=== PATIENT | female | born 1935 | race Caucasian/White ===

== ENCOUNTER 2018-07-13 20:47 | Inpatient (IN) ==
[2018-07-14] MEDS: Sod Chloride 0.9% Inj 1,000 ML IV.CONT SCH (03:00)
[2018-07-14] MEDS ORDERED: niCARdipine Inj 25 MG in Sodium Chlor 0.9% Inj 240 ML IV.CONT PRN (03:20)
--- NOTE | 2018-07-14 05:14 | P.HPCC ---
History of Present Illness Service: Critical Care medicine Primary Care Physician: UNKNOWN Chief Complaint: Falling History of Present Illness: History obtained primarily from discussion with Dr. Trejo at [place]. Patient provides limited history. I attempted to contact family (Emeka Henry) but there was no answer. Nurse states she was told they would be coming to the hospital later today. 83-year-old female with past medical history of hypertension, hyperlipidemia, dementia, whose nez perce language is Ghanaian, was reportedly living independently until she had a fall in June and then moved in with her family. Her family indicated that for about a week and a half she would lean to the left when ambulating. She had seen her PMD for this a couple of days ago but presented to the ED in [place] when symptoms persisted. Workup there included CT brain that demonstrated 3 cm subacute subdural with 1.12 cm of [id number] midline shift with impingement on the right ventricle. She had normal platelet count and coags. She is not on antiplatelet or anticoagulant therapy. No reported seizure. She is hyperglycemic with glucose 381, sodium was 134. ED physician discussed with Neurosurgery and patient was transferred to [facility]. Recorded BP was 181/77 at [place] but per report this was obtained during IV placement and subsequent BPs were reportedly in 140s-150. However, upon arrival here her BP was 211/86 and she is being started on cardene drip. She denies headache, nausea, pain, sensory deficits. - Diagnosis (1) HTN (hypertension) (2) Intracranial subdural hematoma (3) Acute UTI (4) HLD (hyperlipidemia) (5) Hyponatremia Inpatient Certification: I certify that the inpatient services were ordered in accordance with Medicare regulations governing the order. This includes certification that hospital inpatient services are reasonable and necessary and in the case of services not specified as inpatient-only under 42 CFR 419.22(n), that they are appropriately provided as inpatient services in accordance to with the 2-midnight benchmark under 43 CFR 412.3(e) Review of Systems All other systems reviewed negative except as stated in HPI [facility] - History History Provided By: Patient, Family Member - Medical History Medical History: Medical History (Last Updated 07/14/18 @ 05:38 by Heidi Unger MD) Surgical history unknown (Acute) Dementia Hyperlipemia Hypertension Type 2 diabetes mellitus - Family History Family History: Family History (Last Updated 07/14/18 @ 05:38 by Heidi Unger MD) Other No significant family history - Tobacco History Second Hand Smoke Exposure: No Smoking Status: Never smoker - Alcohol History How Often Do You Have a Drink Containing Alcohol: Never - Substance Use History Substance History: No History of Abuse Medications and Allergies Active Medications: Active Medications Nicardipine HCl 25 mg/ Sodium (Chloride) 250 mls @ 50 mls/hr IV.CONT TITRATE PRN; Protocol PRN Reason: Per Protocol Last Admin: 07/14/18 03:34 Dose: 5 mg/hr, 50 mls/hr Labetalol HCl (Trandate Inj) 10 mg IV.PUSH Q4H PRN PRN Reason: SBP >160 Allergies Allergy/AdvReac Type Severity Reaction Status Date / Time No Known Allergies Allergy Verified 07/13/18 20:59 Home Medications Medication Instructions Recorded Confirmed Type atorvastatin 40 mg PO DAILY 07/13/18 07/14/18 History cyanocobalamin-cobamamide [B12] 1 tab SUBLINGUAL DAILY 07/13/18 07/14/18 History donepezil 10 mg PO DAILY 07/13/18 07/14/18 History folic acid 1 mg PO DAILY 07/13/18 07/14/18 History loratadine 10 mg PO DAILY 07/13/18 07/14/18 History losartan 100 mg PO DAILY 07/13/18 07/14/18 History metoprolol succinate 50 mg PO DAILY 07/13/18 07/14/18 History Results - Labs CBC & Chem 7: 07/15/18 04:18 07/15/18 04:18 Exam Vital signs: Vital Signs 07/14/18 03:00 07/14/18 04:00 07/14/18 05:00 Temperature 97.5 F L Pulse Rate 62 66 76 Respiratory Rate 20 19 19 Blood Pressure 211/86 H 163/70 H 131/73 Pulse Oximetry 100 96 98 Intake & Output 07/13/18 07/13/18 07/14/18 06:59 18:59 06:59 Weight 46.7 kg Other: Date of Last Bowel Movement 07/14/18 Weight On Admission 46.7 kg Narrative: GENERAL: Elderly female who communicates with combination of Ghanaian and Nepalese. SKIN: Warm and dry, well perfused. HEAD: Atraumatic. Normocephalic. EYES: Pupils equal and round, pinpoint and sluggishly reactive bilaterally. No scleral icterus. No injection or drainage. ENT: No nasal bleeding or discharge. Mucous membranes pink and moist. NECK: Trachea midline. No JVD. CARDIOVASCULAR: Regular rate and rhythm, sinus rhythm on the monitor. No murmurs rubs or gallops. RESPIRATORY: No accessory muscle use. Clear to auscultation. Breath sounds equal bilaterally. On room air GASTROINTESTINAL: Abdomen soft, non-tender, nondistended. Bowel sounds present. MUSCULOSKELETAL: Extremities without clubbing, cyanosis, or edema. No obvious deformities. NEUROLOGICAL: Awake and alert. Oriented to self, hospital. No obvious cranial nerve deficits, no facial droop. She reports intact sensation to soft touch and temperature. No pronator drift. She requires repeated prompting to follow commands, strength appears symmetrical without apparent focality. Gait testing deferred, patient reportedly falls to left upon prior gait testing. Caprini VTE Risk Assessment Caprini VTE Risk Assessment: Moderate/High Risk (score >= 2) VTE Pharmacological Exception Reason: Intracranial lesions Caprini Risk Assessment Model: Point Value = 1 Point Value = 2 Point Value = 3 Point Value = 5 Age 41-60 Minor surgery BMI > 25 kg/m2 Swollen legs Varicose veins or History of unexplained or recurrent spontaneous Oral contraceptives or hormone replacement Sepsis (< 1 month) Serious lung disease, including pneumonia (< 1 month) Abnormal pulmonary function Acute myocardial infarction Congestive heart failure (< 1 month) History of inflammatory bowel disease Medical patient at bed rest Age 61-74 Arthroscopic surgery Major open surgery (> 45 min) Laparoscopic surgery (> 45 min) Malignancy Confined to bed (> 72 hours) Immobilizing plaster cast Central venous access Age >= 75 History of VTE Family history of VTE Factor V Leiden Prothrombin 32199C Lupus anticoagulant Anticardiolipin antibodies Elevated serum homocysteine Heparin-induced thrombocytopenia Other congenital or acquired thrombophilia Stroke (< 1 month) Elective arthroplasty Hip, pelvis, or leg fracture Acute spinal cord injury (< 1 month) Prophylaxis Regimen: Total Risk Factor Score Risk Level Prophylaxis Regimen 0-1 Low Early ambulation 2 Moderate Order ONE of the following: *Sequential Compression Device (SCD) *Heparin 5000 units SQ BID 3-4 Higher Order ONE of the following medications: *Heparin 5000 units SQ TID *Enoxaparin/Lovenox 40 mg SQ daily (WT < 150 kg, CrCl > 30 mL/min) *Enoxaparin/Lovenox 30 mg SQ daily (WT < 150 kg, CrCl > 10-29 mL/min) *Enoxaparin/Lovenox 30 mg SQ BID (WT < 150 kg, CrCl > 30 mL/min) AND/OR *Sequential Compression Device (SCD) 5 or more Highest Order ONE of the following medications: *Heparin 5000 units SQ TID (Preferred with Epidurals) *Enoxaparin/Lovenox 40 mg SQ daily (WT < 150 kg, CrCl > 30 mL/min) *Enoxaparin/Lovenox 30 mg SQ daily (WT < 150 kg, CrCl > 10-29 mL/min) *Enoxaparin/Lovenox 30 mg SQ BID (WT < 150 kg, CrCl > 30 mL/min) AND *Sequential Compression Device (SCD) Assessment and Plan - Problem List (1) HTN (hypertension) Code(s): I10 - Essential (primary) hypertension Status: Acute (2) Intracranial subdural hematoma Code(s): S06.5X9A - Traumatic subdural hemorrhage with loss of consciousness of unspecified duration, initial encounter Status: Inactive (3) Acute UTI Code(s): N39.0 - Urinary tract infection, site not specified Status: Inactive (4) HLD (hyperlipidemia) Code(s): E78.5 - Hyperlipidemia, unspecified Status: Chronic (5) Hyponatremia Code(s): E87.1 - Hypo-osmolality and hyponatremia Status: Acute - Assessment and Plan Plan: NEURO: Subacute subdural hematoma with midline shift Dementia Admit to [facility] with every hour neuro check. Neurosurgery consult for hematoma evacuation. Keppra 500 milligrams IV every 12 hours for seizure prophylaxis Cardene drip as per below. Continue Aricept RESP: She is currently protecting her airway. Monitor in [facility] for airway protection and will intubate if needed. CV: Hypertension Hyperlipidemia Monitor hemodynamics. Nicardipine drip as needed to maintain systolic blood pressure less than 160. Labetalol as needed. Hold statin for now. Hold losartan/metoprolol succinate for now. GI: N.p.o. for now. When it is appropriate to advance diet will need swallow evaluation. FEN/RENAL: Mild hyponatremia, monitor BMP. NS 42ml/hr. ID: UA at [place] showed bacteriuria. Urine culture was sent and we will follow this up. She did receive 1 dose of Keflex. White count is normal with no fever or urinary symptoms. HEME: She is not on any antiplatelet or anticoagulant therapy. Platelet count and coags were normal at outside hospital. ENDO: Acute hyperglycemia reportedly does not carry the diagnosis of diabetes. Will monitor bedside glucose every 4 hours and administer low-dose insulin sliding scale as needed. Check hemoglobin A1c. PROPH: SCDs for DVT prophylaxis. Pharmacology DVT prophylaxis is currently contraindicated due to subacute subdural hematoma. Protonix IV for stress ulcer prophylaxis. ACCESS: Peripheral IV providing adequate access at this time. Patient is critically ill with subacute subdural with mass-effect. She is at high risk for further deterioration which could include loss of airway protection. She has malignant hypertension and in need of urgent management. CCT 40 minutes exclusive of separately billable procedures. H&P: Quality - VTE Deep Vein Thrombosis/Pulmonary Embolism Present on Admission: No (2) Intracranial subdural hematoma Qualifiers: Encounter type: initial encounter Loss of consciousness presence/duration: without LOC Qualified Code(s): S06.5X0A - Traumatic subdural hemorrhage without loss of consciousness, initial encounter
[2018-07-14] MEDS ORDERED: Bisacodyl 10 MG Supp RECTAL PRN (05:50)
[2018-07-14] MEDS ORDERED: Acetaminophen 325 MG Tablet PO PRN (05:50)
[2018-07-14] MEDS ORDERED: Dextrose 50% in Water 50 ML Vial IV.PUSH PRN (05:55)
[2018-07-14] MEDS: Insulin NovoLOG Aspart Correctional Sugar Inj SQ SCH ×4 (06:10→18:00)
[2018-07-14] MEDS ORDERED: Gelatin Size 100 Topical Foam ONE (07:36)
[2018-07-14] MEDS ORDERED: Thrombin Topical Soln 5,000 UNIT Vial TOPICAL ONE (07:36)
[2018-07-14] MEDS ORDERED: Lidocaine 1%/Epinephrine 1:100,000 Inj 30 ML Vial ONE (07:36)
[2018-07-14] MEDS ORDERED: Bupivacaine/Epinephrine Inj 0.25% 50 ML Vial ONE (07:36)
--- NOTE | 2018-07-14 07:38 | P.CONNS ---
History of Present Illness Service: Neurosurgery Consult date: 07/14/18 Reason for Consult: Subdural hematoma Primary Care Provider: UNKNOWN Chief Complaint: Falling History of Present Illness: 83 yo with PMH of HTN, HL, dementia transferred from OSH for evaluation of subdural hematoma. History obtained from brother and sister in law. reports fall roughly one month ago. has noticed a steady decline over the past 1-2 weeks regarding gait and left sided weakness. Patient does report headaches. Review of Systems All other systems reviewed negative except as stated in HPI [facility] - History History Provided By: Patient, Family Member - Medical History Medical History: Medical History (Last Updated 07/14/18 @ 05:38 by Heidi Unger MD) Surgical history unknown (Acute) Dementia Hyperlipemia Hypertension Type 2 diabetes mellitus - Family History Family History: Family History (Last Updated 07/14/18 @ 05:38 by Heidi Unger MD) Other No significant family history - Tobacco History Second Hand Smoke Exposure: No Smoking Status: Never smoker - Alcohol History How Often Do You Have a Drink Containing Alcohol: Never - Substance Use History Substance History: No History of Abuse Medications and Allergies Active Medications: Active Medications Acetaminophen (Tylenol) 650 mg PO Q6H PRN PRN Reason: PAIN 1-10 AND/OR FEVER >101F Hydrocodone Bitart/Acetaminophen (Colony 5/325) 1 tab PO Q4H PRN PRN Reason: headache Last Admin: 07/14/18 06:13 Dose: 1 tab Al Hydroxide/Mg Hydroxide (Milk Of Magndavid Liq) 30 ml PO Q12H PRN PRN Reason: Mild Constipation Bisacodyl (Dulcolax Supp) 10 mg RECTAL DAILY PRN PRN Reason: SEVERE CONSITIPATION Dextrose (D50w Vial) 50 ml IV.PUSH UNSCH PRN PRN Reason: PER HYPOGLYCEMIA PROTOCOL Donepezil HCl (Aricept) 10 mg PO DAILY [facility] Glucagon (Glucagon Inj) 1 mg OTHER PRN PRN PRN Reason: for Hypoglycemia Protocol Nicardipine HCl 25 mg/ Sodium (Chloride) 250 mls @ 50 mls/hr IV.CONT TITRATE PRN; Protocol PRN Reason: Per Protocol Last Titration: 07/14/18 05:24 Dose: 0 mg/hr, 0 mls/hr Levetiracetam 500 mg/ Sodium (Chloride) 105 mls @ 400 mls/hr IV.SIG Q12H REPLACED BY [facility] Last Infusion: 07/14/18 06:14 Dose: Infused Sodium Chloride (Ns Inj) 1,000 mls @ 42 mls/hr IV.CONT .[id number] REPLACED BY [facility] Last Admin: 07/14/18 03:00 Dose: 42 mls/hr Insulin Aspart (Novolog Insulin Correctional Sugar Inj) 0 unit SQ Q4H REPLACED BY [facility]; Protocol Last Admin: 07/14/18 06:10 Dose: 1 unit Labetalol HCl (Trandate Inj) 10 mg IV.PUSH Q4H PRN PRN Reason: SBP >160 Lactulose (Lactulose Liq) 30 ml PO DAILY PRN PRN Reason: SEVERE CONSITIPATION Ondansetron HCl (Zofran Inj) 4 mg IV.PUSH Q6H PRN PRN Reason: NAUSEA OR VOMITING Pantoprazole Sodium (Protonix Inj) 40 mg IV.PUSH DAILY REPLACED BY [facility] Senna/Docusate Sodium (Michelle-Colace) 1 tab PO BID REPLACED BY [facility] Sennosides (Senokot) 17.2 mg PO Q12H PRN PRN Reason: Moderate Constipation Sodium Chloride (Ns Flush) 2 ml IV.FLUSH BID [facility] Sodium Chloride (Ns Flush) 2 ml IV.FLUSH PRN PRN PRN Reason: FLUSH AFTER USING IV ACCESS Allergies Allergy/AdvReac Type Severity Reaction Status Date / Time No Known Allergies Allergy Verified 07/13/18 20:59 Home Medications Medication Instructions Recorded Confirmed Type atorvastatin 40 mg PO DAILY 07/13/18 07/14/18 History cyanocobalamin-cobamamide [B12] 1 tab SUBLINGUAL DAILY 07/13/18 07/14/18 History donepezil 10 mg PO DAILY 07/13/18 07/14/18 History folic acid 1 mg PO DAILY 07/13/18 07/14/18 History loratadine 10 mg PO DAILY 07/13/18 07/14/18 History losartan 100 mg PO DAILY 07/13/18 07/14/18 History metoprolol succinate 50 mg PO DAILY 07/13/18 07/14/18 History Exam Vital signs: Vital Signs 07/14/18 03:00 07/14/18 04:00 07/14/18 05:00 Temperature 97.5 F L Pulse Rate 62 66 76 Respiratory Rate 20 19 19 Blood Pressure 211/86 H 163/70 H 131/73 Pulse Oximetry 100 96 98 07/14/18 06:00 07/14/18 07:14 Temperature Pulse Rate 66 Respiratory Rate 19 11 L Blood Pressure 163/70 H Pulse Oximetry 96 Intake & Output 07/13/18 07/14/18 07/14/18 18:59 06:59 18:59 Intake Total 105 / 105 Output Total 550 / 550 Balance -445 / -445 Weight 46.7 kg Intake: IV 105 / 105 Keppra Inj 500 MG In NS Inj 100 105 / 105 ML @ 400 mls/hr IV.SIG Q12H [facility] Rx#:[id number] Output: Urine 550 / 550 Other: # Voids 1 Date of Last Bowel Movement 07/14/18 # Bowel Movements 0 Weight On Admission 46.7 kg Narrative: E4 bright service dispatcher intact Ao x self, hospital, not to year Follows commands x4 does not cooperate for full motor testing but symmetric and resists examiner with good strength (roughly 4 throughout) Left drift 0/4 reflexes throughout sensation intact in all extremities Results - Laboratory Findings Abnormal lab findings: Abnormal Labs 07/14/18 06:07 POC Glucose 192 H Assessment and Plan - Plan Imaging: Large right sided panhemispheric subacute on chronic subdural hematoma measuring roughly 3 cm with 1 cm of midline shift A/P: 83 with symptomatic right sided subdural hematoma. Discussed the risks, indications, and alternatives to surgical intervention, family would like to proceed with anna holes for evacuation of subdural hematoma -OR today for evacuation -NPO
[2018-07-14] MEDS ORDERED: ceFAZolin 2 GM Premix Inj 2 GM/50 ML PIGGYBACK IV.SIG ONE (08:35)
[2018-07-14] MEDS ORDERED: Metoprolol Inj 5 MG/5 ML Vial IV.PUSH ONE (08:45)
[2018-07-14] MEDS ORDERED: Phenylephrine/NS 1000 MCG/10ML Syringe IV.PUSH ONE (08:45)
[2018-07-14] MEDS ORDERED: Lidocaine PF 1% Inj 5 ML Syringe INFILTRATN ONE (08:45)
[2018-07-14] MEDS: Pantoprazole Inj 40 MG Vial IV.PUSH SCH (09:31)
[2018-07-14] MEDS: Senna/Docusate Sodium 8.6/50 MG Tablet PO SCH ×2 (09:31→21:22)
[2018-07-14] MEDS ORDERED: Chlorhexidine Gluconate 0.12% Liq 15 ML UDC ONE (09:32)
--- NOTE | 2018-07-14 10:19 | P.BOP ---
- Preoperative Diagnosis (1) Subdural hematoma, chronic - Postoperative Diagnosis (1) Subdural hematoma, chronic Date of procedure: 07/14/18 Procedure: Right anna holes for evacuation of subdural hematoma Anesthesia: GETA Surgeon: Harlan Crump MD Estimated blood loss (mL): 50 IV fluids (mL): 700 Urine output (mL): 0 (not recorded) Pathology: none sent Condition: stable Disposition: ICU
--- NOTE | 2018-07-14 10:20 | P.EN ---
Post operative instructions -EVERARDO to thumb print and at shoulder -Ok to be OOB for bathroom and work with PT -when in bed, please keep HOB <10 degrees -Nydia for 2 weeks
--- NOTE | 2018-07-14 10:25 | P.OP ---
- Preoperative Diagnosis (1) Subdural hematoma, chronic - Postoperative Diagnosis (1) Subdural hematoma, chronic Date of procedure: 07/14/18 Procedure: Right anna holes for evacuation of subdural hematoma Implants: none Anesthesia: GETA Surgeon: Harlan Crump MD Estimated blood loss (mL): 50 IV fluids (mL): 700 Urine output (mL): 0 (not recorded) Operation and Findings: Indication for procedure: This is an 83 yo who presented to an [facility] ED on 07/13 with complaints of gait difficulties. Per family, with fall 1 month ago with progressive decline since then. A head CT was obtained which demonstrated a large panhemispheric right subdural hematoma. The risks, indications, and alternatives were discussed with the patients poa, and the family elected to undergo anna holes for evacuation. Details of procedure: The patient was brought to the operating room and moved to the operating table. A universal time out was performed confirming the correct patient and correct procedure. The patient was anesthetized and intubated by our anesthesia collegues without complication. The patient was subsequently prepped and drapped in sterile fashion. A pre-incisional timeout was again performed confirming introduction of pre-incisional antibiotics. Two scalp incisions (right frontal and right parietal) were anesthetized with local anesthetic and incised with a 10 blade. Two anna holes were made and the dura was coagulated open. There was a large chronic, under pressure, subdural fluid collection found. This was irrigated till clear. Both anna holes were covered with anna hole covers and a 7 F EVERARDO drain was tunneled in the subgaleal space to lay on top. The wounds were copiously irrigated and hemostasis achieved. The posterior wound was closed with 2.0 vicryl followed by al for the skin. The head was raised and the frontal anna hole was irrigated in efforts to remove all pneumocephalus. The frontal incision was then closed as described above. All counts were correct at the end of the procedure and the patient was extubated and noted to be following commands. No intraoperative complications noted. Dispo: PACU in stable condition
[2018-07-14] MEDS ORDERED: fentaNYL Citrate Inj 100 MCG/2 ML Ampul ONE (10:33)
[2018-07-14 10:58] LABS: Hemoglobin A1c 8.2 % (4.3-6.0)
--- NOTE | 2018-07-14 18:29 | P.EN ---
Neurosurgery post op note E4 bright AO x self, hospital FC x4 5/5 strength in the upper and lower extremities without drift A/P: 83 yo POD O right anna holes for subdural hematoma -neuro checks -continue EVERARDO -pain control -HOB <10 when in bed, ok to be OOB for bathroom
[2018-07-15] MEDS: Insulin NovoLOG Aspart Correctional Sugar Inj SQ SCH ×7 (02:53→21:24)
[2018-07-15 04:52] LABS: Baso % (Auto) 0.3 % (0.0-2.0); Eos % (Auto) 0.3 % (0.0-4.0); Hemoglobin 10.9 gm/dL (11.6-15.3); Lymph # (Auto) 0.8 th/mm3 (1.0-4.8); Lymph % (Auto) 8.3 % (9.0-44.0); Mean Corpuscular HGB Conc 35.2 % (32.0-36.0); Mean Corpuscular Hemoglobin 32.7 pg (27.0-34.0); Mean Corpuscular Volume 92.9 fL (80.0-100.0); Mean Platelet Volume 9.1 fL (7.0-11.0); Mono # (Auto) 0.7 th/mm3 (0.0-0.9); Mono % (Auto) 6.9 % (0.0-8.0); Neut # (Auto) 8.6 th/mm3 (1.8-7.7); Neut % (Auto) 84.2 % (16.0-70.0); Platelet Count 188 th/mm3 (150-450); Red Blood Count 3.33 mil/mm3 (4.00-5.30); Red Cell Distribution Width 13.5 % (11.6-17.2); White Blood Count 10.2 th/mm3 (4.0-11.0)
[2018-07-15 05:08] LABS: Calcium 7.3 mg/dL (8.5-10.1); Carbon Dioxide 26.4 meq/L (21.0-32.0); Magnesium 1.9 mg/dL (1.5-2.5); Phosphorus 2.7 mg/dL (2.5-4.9); Potassium 3.5 meq/L (3.5-5.1)
[2018-07-15 05:31] LABS: Total Protein 6.3 g/dL (6.4-8.2)
--- NOTE | 2018-07-15 05:36 | CT ---
EXAM DATE: 07/15/2018 5:00 AM EDT AGE/SEX: 83 years / Female INDICATIONS: F/U subdural hematoma. CLINICAL DATA: This is the patient's subsequent encounter. Patient reports that signs and symptoms h ave been present for 2 days and indicates a pain score of Nonresponsive. MEDICAL/SURGICAL HISTORY: Hypertension. Dementia. Diabetes. None. RADIATION DOSE: 35.03 CTDI (mGy) COMPARISON: [facility], CT HEAD W/O CONTRAST, 07/13/2018. . TECHNIQUE: CT of the head without contrast. Using automated exposure control and adjustment of the mA and/or kV according to patient size, radiation dose was kept as low as reasonably achievable to ob tain optimal diagnostic quality images. DICOM format image data is available electronically for revi ew and comparison. FINDINGS: Cerebrum: Compare July 13. Previous large right subdural hematoma has decreased in size now trinity uring around 11 mm in thickness with some pneumocephalus present. Midline shift has decreased from 11 mm to 8 mm from right to left. No new hemorrhage. A drain is present in the scalp. [place] hole is note d. Posterior Fossa: The cerebellum and brainstem are intact. The 4th ventricle is midline. The cerebe llopontine angle is unremarkable. Extracranial: The visualized portion of the orbits is intact. Skull: The calvaria is intact. No evidence of skull fracture. CONCLUSION: 1. Decrease in size of right subdural hematoma with less mass effect or midline shift as above. No n ew hemorrhage. Right-sided drain is within the scalp soft tissues. Romina hole is present with pneumoce phalus from recent surgery. . Electronically signed by: Steve Morocho MD 07/15/2018 5:35 AM EDT
[2018-07-15] MEDS: Sod Chloride 0.9% Inj 1,000 ML IV.CONT SCH (06:03)
--- NOTE | 2018-07-15 08:37 | P.PNNS ---
Subjective Interval history: patient reports improved headache Physical Exam Vital signs: Vital Signs 07/14/18 10:30 07/14/18 10:45 07/14/18 11:15 Temperature 95.9 F L 97.5 F L Pulse Rate 87 86 85 Respiratory Rate 20 18 16 Blood Pressure 129/60 136/62 139/67 Pulse Oximetry 100 100 100 07/14/18 12:00 07/14/18 13:00 07/14/18 14:00 Temperature 97.3 F L Pulse Rate 64 60 62 Respiratory Rate 17 13 20 Blood Pressure 127/60 143/65 H 154/69 H Pulse Oximetry 100 100 100 07/14/18 15:00 07/14/18 16:00 07/14/18 17:00 Temperature 97.6 F Pulse Rate 68 70 76 Respiratory Rate 16 22 19 Blood Pressure 164/67 H 194/89 H Pulse Oximetry 99 98 98 07/14/18 18:00 07/14/18 19:00 07/14/18 20:00 Temperature 97.7 F Pulse Rate 72 77 80 Respiratory Rate 20 14 Blood Pressure 177/75 H Pulse Oximetry 98 98 07/14/18 21:00 07/14/18 22:00 07/14/18 23:00 Temperature Pulse Rate 76 76 77 Respiratory Rate Blood Pressure Pulse Oximetry 07/15/18 00:00 07/15/18 01:00 07/15/18 02:00 Temperature 97.7 F Pulse Rate 77 78 83 Respiratory Rate 21 Blood Pressure 152/68 H Pulse Oximetry 98 07/15/18 02:53 07/15/18 03:00 07/15/18 04:00 Temperature 97.7 F Pulse Rate 81 79 Respiratory Rate 21 25 H Blood Pressure 155/72 H Pulse Oximetry 94 L 07/15/18 05:00 07/15/18 05:41 07/15/18 06:00 Temperature Pulse Rate 73 73 Respiratory Rate 25 H Blood Pressure Pulse Oximetry Intake & Output 07/14/18 07/15/18 07/15/18 18:59 06:59 18:59 Intake Total 750 / 750 2910 / 2910 160 / 160 Output Total 125 / 125 675 / 675 560 / 560 Balance 625 / 625 2235 / 2235 -400 / -400 Weight 48 kg Intake: IV 50 / 50 2210 / 2210 NS Inj 1,000 ML @ 42 mls/hr IV. 1999 CONT .[id number] [facility] Rx#:[id number] Ancef 2 GM Premix Inj 2 gm In 50 / 50 50 ml @ 0 mls/hr IV.SIG .STK- [facility] Rx#:[id number] Keppra Inj 500 MG In NS Inj 100 210 / 210 ML @ 400 mls/hr IV.SIG Q12H [facility] Rx#:[id number] Oral 160 / 160 Anesthesia Amount 700 / 700 700 / 700 Output: Urine 550 / 550 500 / 500 Stool 0 / 0 Estimated Blood Loss 50 / 50 50 / 50 Wound Drainage 75 / 75 75 / 75 60 / 60 # 1 Right Head EVERARDO Drain 75 / 75 75 / 75 60 / 60 Other: # Voids 1 1 # Incontinent Voids 3 3 Date of Last Bowel Movement 07/14/18 07/14/18 07/14/18 # Bowel Movements 0 0 Narrative: E4 AOx 2 FC x 4 4/5 strength throughout, symmetric without drift Assessment and Plan - Plan A/P: 83 POD 1 from Rt anna holes for evacuation of subdural hematoma -CT head reviewed: reduction in subdural size and midline shift -EVERARDO with high output, continue for 1 more day, perform frequent drain tube stripping -keppra for 2 weeks -Ok to be OOB with bathroom privileges and to work with PT. When in bed, please keep HOB <10 degrees in order to promote further evacuation of SDH -regular diet -likely dc drain tomorrow and transfer to floor
[2018-07-15] MEDS: Senna/Docusate Sodium 8.6/50 MG Tablet PO SCH ×2 (09:13→21:24)
[2018-07-15] MEDS: Pantoprazole Inj 40 MG Vial IV.PUSH SCH (09:13)
[2018-07-15] MEDS: Labetalol HCl Inj 100 MG/20 ML Vial IV.PUSH PRN ×2 (09:15→17:42)
--- NOTE | 2018-07-15 11:26 | P.PN ---
Subjective Interval history: Nursing denies any deterioration since last night. Patient herself has no new juliana complaints. Says she wants to try to exercise as much as possible, does not like to lie in bed. Physical Exam Vital signs: Vital Signs 07/14/18 12:00 07/14/18 13:00 07/14/18 14:00 Temperature 97.3 F L Pulse Rate 64 60 62 Respiratory Rate 17 13 20 Blood Pressure 127/60 143/65 H 154/69 H Pulse Oximetry 100 100 100 07/14/18 15:00 07/14/18 16:00 07/14/18 17:00 Temperature 97.6 F Pulse Rate 68 70 76 Respiratory Rate 16 22 19 Blood Pressure 164/67 H 194/89 H Pulse Oximetry 99 98 98 07/14/18 18:00 07/14/18 19:00 07/14/18 20:00 Temperature 97.7 F Pulse Rate 72 77 80 Respiratory Rate 20 14 Blood Pressure 177/75 H Pulse Oximetry 98 98 07/14/18 21:00 07/14/18 22:00 07/14/18 23:00 Temperature Pulse Rate 76 76 77 Respiratory Rate Blood Pressure Pulse Oximetry 07/15/18 00:00 07/15/18 01:00 07/15/18 02:00 Temperature 97.7 F Pulse Rate 77 78 83 Respiratory Rate 21 Blood Pressure 152/68 H Pulse Oximetry 98 07/15/18 02:53 07/15/18 03:00 07/15/18 04:00 Temperature 97.7 F Pulse Rate 81 79 Respiratory Rate 21 25 H Blood Pressure 155/72 H Pulse Oximetry 94 L 07/15/18 05:00 07/15/18 05:41 07/15/18 06:00 Temperature Pulse Rate 73 73 Respiratory Rate 25 H Blood Pressure Pulse Oximetry 07/15/18 08:00 Temperature 97.9 F Pulse Rate 72 Respiratory Rate 19 Blood Pressure 169/70 H Pulse Oximetry 95 Intake & Output 07/14/18 07/15/18 07/15/18 18:59 06:59 18:59 Intake Total 750 / 750 2910 / 2910 160 / 160 Output Total 125 / 125 675 / 675 560 / 560 Balance 625 / 625 2235 / 2235 -400 / -400 Weight 48 kg Intake: IV 50 / 50 2210 / 2210 NS Inj 1,000 ML @ 42 mls/hr IV. 1999 CONT .[id number] [facility] Rx#:[id number] Ancef 2 GM Premix Inj 2 gm In 50 / 50 50 ml @ 0 mls/hr IV.SIG .STK- [facility] Rx#:[id number] Keppra Inj 500 MG In NS Inj 100 210 / 210 ML @ 400 mls/hr IV.SIG Q12H [facility] Rx#:[id number] Oral 160 / 160 Anesthesia Amount 700 / 700 700 / 700 Output: Urine 550 / 550 500 / 500 Stool 0 / 0 Estimated Blood Loss 50 / 50 50 / 50 Wound Drainage 75 / 75 75 / 75 60 / 60 # 1 Right Head EVERARDO Drain 75 / 75 75 / 75 60 / 60 Other: # Voids 1 1 # Incontinent Voids 3 3 Date of Last Bowel Movement 07/14/18 07/14/18 07/14/18 # Bowel Movements 0 0 Narrative: 5/5 for prescription strength bilaterally Alert and oriented 3 No juliana facial droop EVERARDO drain in place over right scalp Results - Labs CBC & Chem 7: 07/15/18 04:18 07/15/18 04:18 Laboratory Results - last 24 hr 07/14/18 07/14/18 07/14/18 08:12 15:18 17:28 WBC RBC Hgb Hct MCV MCH MCHC RDW Plt Count MPV Neut % (Auto) Lymph % (Auto) [place] % (Auto) Eos % (Auto) Baso % (Auto) Neut # (Auto) Lymph # (Auto) [place] # (Auto) Eos # (Auto) Baso # (Auto) WBC Differential Differential Comment Sodium Potassium Chloride Carbon Dioxide Anion Gap BUN Creatinine Estimated GFR POC Glucose 155 H 218 H Random Glucose Hemoglobin A1c 8.2 H Calcium Prot Corrected Calcium Phosphorus Magnesium Total Protein 07/15/18 07/15/18 04:18 04:18 WBC 10.2 RBC 3.33 L Hgb 10.9 L Hct 31.0 L MCV 92.9 MCH 32.7 MCHC 35.2 RDW 13.5 Plt Count 188 MPV 9.1 Neut % (Auto) 84.2 H Lymph % (Auto) 8.3 L [place] % (Auto) 6.9 Eos % (Auto) 0.3 Baso % (Auto) 0.3 Neut # (Auto) 8.6 H Lymph # (Auto) 0.8 L [place] # (Auto) 0.7 Eos # (Auto) 0.0 Baso # (Auto) 0.0 WBC Differential . Differential Comment Auto diff final Sodium 143 Potassium 3.5 Chloride 107 D Carbon Dioxide 26.4 Anion Gap 10 BUN 13 Creatinine 0.66 Estimated GFR 86 L POC Glucose Random Glucose 252 H D Hemoglobin A1c Calcium 7.3 L* D Prot Corrected Calcium 7.7 L Phosphorus 2.7 Magnesium 1.9 Total Protein 6.3 L D - Imaging Impressions Head CT 07/15/18 04:00 CONCLUSION: 1. Decrease in size of right subdural hematoma with less mass effect or midline shift as above. No new hemorrhage. Right-sided drain is within the scalp soft tissues. Romina hole is present with pneumocephalus from recent surgery. . Assessment and Plan - Plan 83-year-old female was admitted with subacute subdural hematoma with midline shift. Status post evacuation with EVERARDO drain placement. Doing well clinically. EVERARDO drain was emptied today by neurosurgeon. Subacute subdural hematoma with midline shift Dementia Keppra Continue Aricept Hypertension Hyperlipidemia resume home BP meds for now Mild hyponatremia -Normalized/resolved, stopping IV fluids bacteriuria -Urine culture was negative for any pathologic infection Diabetes mellitus New diagnosis, A1c is 8.2, blood sugars seem to be well over 150s consistently , continue LDSS, discharge w/ low dose metformin SCDs for DVT prophylaxis. Pharmacology DVT prophylaxis is currently contraindicated due to subacute subdural hematoma. Protonix IV for stress ulcer prophylaxis.
[2018-07-15] MEDS ORDERED: CYANOCOBALAMIN COBAMAMIDE SL SCH (11:45)
[2018-07-15] MEDS: Folic Acid 1 MG Tablet PO SCH (14:57)
[2018-07-16] MEDS: Labetalol HCl Inj 100 MG/20 ML Vial IV.PUSH PRN ×3 (00:11→12:12)
[2018-07-16] MEDS: Insulin NovoLOG Aspart Correctional Sugar Inj SQ SCH ×6 (02:27→21:18)
--- NOTE | 2018-07-16 08:52 | P.PNNS ---
Subjective Interval history: Improved overnight. Drain output lessened to 30cc last 12 hours. Requesting to go home. Physical Exam Vital signs: Vital Signs 07/15/18 12:00 07/15/18 16:00 07/15/18 20:00 Temperature 98.1 F 98.4 F 98.7 F Pulse Rate 70 74 74 Respiratory Rate 18 16 18 Blood Pressure 169/81 H 144/65 H 123/81 Pulse Oximetry 96 96 97 07/16/18 00:00 07/16/18 04:00 Temperature 98.3 F 98.5 F Pulse Rate 78 83 Respiratory Rate 15 22 Blood Pressure 170/72 H 171/73 H Pulse Oximetry 97 100 Intake & Output 07/15/18 07/16/18 07/16/18 18:59 06:59 18:59 Intake Total 715 / 715 355 / 355 Output Total 605 / 605 30 / 30 Balance 110 / 110 325 / 325 Weight 46.1 kg Intake: IV 355 / 355 105 / 105 NS Inj 1,000 ML @ 42 mls/hr IV. 250 / 250 CONT .[id number] [facility] Rx#:[id number] Keppra Inj 500 MG In NS Inj 100 105 / 105 105 / 105 ML @ 400 mls/hr IV.SIG Q12H [facility] Rx#:[id number] Oral 360 / 360 250 / 250 Output: Urine 500 / 500 Stool 0 / 0 Wound Drainage 105 / 105 30 / 30 # 1 Right Head EVERARDO Drain 105 / 105 30 / 30 Other: # Voids 2 3 Date of Last Bowel Movement 07/14/18 07/16/18 # Bowel Movements 1 Assessment and Plan - Plan A/P: 83 POD 2 from Rt anna holes for evacuation of subdural hematoma (07/14) -CT head reviewed: reduction in subdural size and midline shift -EVERARDO with reduced output overnight (30cc)-- removed this morning -keppra for 2 weeks -Ok to be OOB and to work with PT. No HOB or activity restriction at this point. -regular diet -Transfer to floor, PT/OT, activity as tolerated
[2018-07-16] MEDS: Senna/Docusate Sodium 8.6/50 MG Tablet PO SCH ×2 (09:19→21:18)
[2018-07-16] MEDS: Folic Acid 1 MG Tablet PO SCH (09:19)
[2018-07-16] MEDS: Pantoprazole Inj 40 MG Vial IV.PUSH SCH (09:20)
--- NOTE | 2018-07-16 11:30 | P.DCO ---
- Physical Therapy Order: Evaluate and treat - Occupational Therapy Order: Evaluate and treat - Home Health Nursing Order: Medical education, Signs/symptoms of disease process - Certification I have seen patient Tricia Henry on 07/16/18. My clinical findings support the need for the requested home health care services because: Limited ability to care for self I certify that my clinical findings support that this patient is homebound because: Unsafe to leave home unassisted
[2018-07-16] MEDS ORDERED: Labetalol HCl Inj 100 MG/20 ML Vial IV.PUSH ONE (11:31)
[2018-07-16] MEDS ORDERED: Lisinopril 5 MG Tablet PO SCH (11:45)
--- NOTE | 2018-07-16 14:24 | P.PN ---
Subjective Interval history: Nursing denies any deterioration since last night. Patient himself was go home Physical Exam Vital signs: Vital Signs 07/15/18 16:00 07/15/18 20:00 07/16/18 00:00 Temperature 98.4 F 98.7 F 98.3 F Pulse Rate 74 74 78 Respiratory Rate 16 18 15 Blood Pressure 144/65 H 123/81 170/72 H Pulse Oximetry 96 97 97 07/16/18 04:00 Temperature 98.5 F Pulse Rate 83 Respiratory Rate 22 Blood Pressure 171/73 H Pulse Oximetry 100 Intake & Output 07/15/18 07/16/18 07/16/18 18:59 06:59 18:59 Intake Total 715 / 715 355 / 355 Output Total 605 / 605 30 / 30 Balance 110 / 110 325 / 325 Weight 46.1 kg Intake: IV 355 / 355 105 / 105 NS Inj 1,000 ML @ 42 mls/hr IV. 250 / 250 CONT .[id number] [facility] Rx#:[id number] Keppra Inj 500 MG In NS Inj 100 105 / 105 105 / 105 ML @ 400 mls/hr IV.SIG Q12H [facility] Rx#:[id number] Oral 360 / 360 250 / 250 Output: Urine 500 / 500 Stool 0 / 0 Wound Drainage 105 / 105 30 / 30 # 1 Right Head EVERARDO Drain 105 / 105 30 / 30 Other: # Voids 2 3 Date of Last Bowel Movement 07/14/18 07/16/18 # Bowel Movements 1 Narrative: Heart sounds regular rate rhythm, no murmurs Clear lungs bilaterally, unlabored breathing Alert and oriented x3 Results - Labs CBC & Chem 7: 07/15/18 04:18 07/15/18 04:18 Laboratory Results - last 24 hr 07/15/18 07/15/18 07/16/18 16:14 21:12 06:30 POC Glucose 258 H 164 H 160 H 07/16/18 14:15 POC Glucose 342 H Assessment and Plan - Assessment (1) Subdural hematoma, chronic Code(s): I62.03 - Nontraumatic chronic subdural hemorrhage Status: Acute - Plan 83-year-old female was admitted with subacute subdural hematoma with midline shift. Status post evacuation with EVERARDO drain placement. Doing well clinically. EVERARDO drain removed today. Subacute subdural hematoma with midline shift Dementia Keppra Continue Aricept Hypertension Hyperlipidemia home BP meds for now Diabetes mellitus New diagnosis, A1c is 8.2, continue LDSS, discharge w/ low dose metformin SCDs for DVT prophylaxis. Pharmacology DVT prophylaxis is currently contraindicated due to subacute subdural hematoma. Protonix IV for stress ulcer prophylaxis. Discharge Planning: Stay overnight per neurosurgery, anticipate discharge tomorrow to snf facility once available.
[2018-07-17] MEDS: Insulin NovoLOG Aspart Correctional Sugar Inj SQ SCH ×6 (01:42→21:46)
[2018-07-17] MEDS: Senna/Docusate Sodium 8.6/50 MG Tablet PO SCH ×2 (09:16→21:46)
[2018-07-17] MEDS: Folic Acid 1 MG Tablet PO SCH (09:16)
[2018-07-17] MEDS: Pantoprazole Inj 40 MG Vial IV.PUSH SCH (09:16)
[2018-07-17] MEDS: NIFEdipine 10 MG Capsule PO SCH ×4 (11:52→21:46)
--- NOTE | 2018-07-17 13:05 | P.PNNS ---
Subjective Interval history: Pt denies any headaches, nausea, vomiting, or paresthesias in face or extremities. Physical Exam Vital signs: Vital Signs 07/16/18 16:00 07/16/18 20:00 07/17/18 00:00 Temperature 97.6 F 98.8 F 98.4 F Pulse Rate 71 69 66 Respiratory Rate 20 17 13 Blood Pressure 186/77 H 158/67 H 139/65 Pulse Oximetry 100 98 95 07/17/18 04:00 07/17/18 08:00 07/17/18 12:00 Temperature 97.8 F 97.8 F Pulse Rate 75 74 106 H Respiratory Rate 18 18 14 Blood Pressure 156/68 H 174/77 H 193/71 H Pulse Oximetry 100 97 Intake & Output 07/16/18 07/17/18 07/17/18 18:59 06:59 18:59 Intake Total 585 / 585 505 / 505 Output Total 620 / 620 0 / 0 Balance -35 / -35 505 / 505 Weight 46.1 kg Intake: IV 105 / 105 105 / 105 Keppra Inj 500 MG In NS Inj 100 105 / 105 105 / 105 ML @ 400 mls/hr IV.SIG Q12H [facility] Rx#:[id number] Oral 480 / 480 400 / 400 Output: Urine 600 / 600 Stool 0 / 0 Wound Drainage 20 / 20 # 1 Right Head EVERARDO Drain 20 Other: # Voids 1 2 Date of Last Bowel Movement 07/16/18 07/16/18 07/16/18 # Bowel Movements 1 1 - Constitutional no acute distress - Routine HEENT Exam Head: Absent: normocephalic (Scalp incision clean and dry without signs of infection.) Eye: Present: PERRL (Pupils 3mm bilaterally reactive bilaterally.). Absent: conjunctival icterus ENT: Present: oropharynx clear - Routine Neck Exam Present: trachea midline - Routine Respiratory Exam Present: CTA bilaterally. Absent: respiratory distress, rhonchi, wheezes - Routine Cardiovascular Exam Present: RRR, S1, S2. Absent: murmur - Routine Abdominal Exam Present: soft, normoactive bowel sounds. Absent: distended, firm - Routine Skin Exam Absent: cyanosis, erythema Comments: Scalp incision clean and dry without signs of infection. - Routine Neurological Exam Present: alert, oriented X3 (Mild confusion but pleasant.), moving all extremities, normal speech. Absent: motor deficit - Detailed Neurological Exam: Coma Scale Eye Opening: Spontaneous Verbal Response: Confused Motor Response: Obey commands [place] Coma Scale Total: 14 - Routine Psychiatric Exam Present: normal affect, cooperative. Absent: agitated Assessment and Plan - Assessment (1) HTN (hypertension) Code(s): I10 - Essential (primary) hypertension Status: Acute (2) Subdural hematoma, chronic Code(s): I62.03 - Nontraumatic chronic subdural hemorrhage Status: Acute (3) Surgical history unknown Code(s): Z78.9 - Other specified health status Status: Acute - Plan A/P: 83 POD 3 from Rt anna holes for evacuation of subdural hematoma (07/14) -CT head reviewed: reduction in subdural size and midline shift -EVERARDO with reduced output overnight (30cc)-- removed 07/16 -keppra for 2 weeks -Ok to be OOB and to work with PT. No HOB or activity restriction at this point. -regular diet Pt seen in conjunction with Dr. Espinoza and note written on his behalf.
--- NOTE | 2018-07-17 18:23 | P.PN ---
Subjective Interval history: Nursing denies any deterioration since last night. Patient looking forward to being discharged. Physical Exam Vital signs: Vital Signs 07/16/18 20:00 07/17/18 00:00 07/17/18 04:00 Temperature 98.8 F 98.4 F 97.8 F Pulse Rate 69 66 75 Respiratory Rate 17 13 18 Blood Pressure 158/67 H 139/65 156/68 H Pulse Oximetry 98 95 100 07/17/18 08:00 07/17/18 12:00 07/17/18 16:00 Temperature 97.8 F 98.4 F Pulse Rate 74 106 H 74 Respiratory Rate 18 14 18 Blood Pressure 174/77 H 193/71 H 129/79 Pulse Oximetry 97 97 Intake & Output 07/16/18 07/17/18 07/17/18 18:59 06:59 18:59 Intake Total 585 / 585 505 / 505 Output Total 620 / 620 0 / 0 Balance -35 / -35 505 / 505 Weight 46.1 kg Intake: IV 105 / 105 105 / 105 Keppra Inj 500 MG In NS Inj 100 105 / 105 105 / 105 ML @ 400 mls/hr IV.SIG Q12H [facility] Rx#:[id number] Oral 480 / 480 400 / 400 Output: Urine 600 / 600 Stool 0 / 0 Wound Drainage 20 / # 1 Right Head EVERARDO Drain Other: # Voids 1 2 Date of Last Bowel Movement 07/16/18 07/16/18 07/16/18 # Bowel Movements 1 1 Narrative: Heart sounds regular rate rhythm, no murmurs Clear lungs bilaterally, unlabored breathing Moncure in place over right skull Results - Labs CBC & Chem 7: 07/15/18 04:18 07/15/18 04:18 Laboratory Results - last 24 hr 07/16/18 07/16/18 07/17/18 18:21 21:09 06:09 POC Glucose 122 H 109 293 H 07/17/18 07/17/18 13:37 17:56 POC Glucose 315 H 186 H Assessment and Plan - Assessment (1) Subdural hematoma, chronic Code(s): I62.03 - Nontraumatic chronic subdural hemorrhage Status: Acute - Plan 83-year-old female was admitted with subacute subdural hematoma with midline shift. Status post evacuation with EVERARDO drain placement, now status post EVERARDO drain removal. Doing well clinically. Subacute subdural hematoma with midline shift Dementia Keppra Continue Aricept Hypertension Hyperlipidemia home BP meds for now Diabetes mellitus New diagnosis, A1c is 8.2, continue LDSS, discharge w/ low dose metformin SCDs for DVT prophylaxis. Pharmacology DVT prophylaxis is currently contraindicated due to subacute subdural hematoma. Protonix IV for stress ulcer prophylaxis. Denied alf facility by insurance. Discussed case with patient's vamp strap ironer, her brother, says that he is quite elderly and has substantial hearing impairment and vocalizes concern about being unable to appropriately accommodate patient. Discharge Planning: Stay overnight per neurosurgery, anticipate discharge tomorrow to alf facility once available.
[2018-07-18] MEDS: Insulin NovoLOG Aspart Correctional Sugar Inj SQ SCH ×7 (02:24→23:21)
--- NOTE | 2018-07-18 09:07 | P.DS ---
Date of admission: 07/14/18 02:11 Primary care physician: UNKNOWN Brief History from admission: History obtained primarily from discussion with Dr. Trejo at [place]. Patient provides limited history. I attempted to contact family (Emeka Henry) but there was no answer. Nurse states she was told they would be coming to the hospital later today. 83-year-old female with past medical history of hypertension, hyperlipidemia, dementia, whose [place] language is [place], was reportedly living independently until she had a fall in June and then moved in with her family. Her family indicated that for about a week and a half she would lean to the left when ambulating. She had seen her PMD for this a couple of days ago but presented to the ED in [place] when symptoms persisted. Workup there included CT brain that demonstrated 3 cm subacute subdural with 1.12 cm of [id number] midline shift with impingement on the right ventricle. She had normal platelet count and coags. She is not on antiplatelet or anticoagulant therapy. No reported seizure. She is hyperglycemic with glucose 381, sodium was 134. ED physician discussed with Neurosurgery and patient was transferred to [facility]. Recorded BP was 181/77 at [place] but per report this was obtained during IV placement and subsequent BPs were reportedly in 140s-150. However, upon arrival here her BP was 211/86 and she is being started on cardene drip. She denies headache, nausea, pain, sensory deficits. DS: Diagnosis - Discharge Diagnosis (1) Subdural hematoma, chronic Status: Acute DS: Medications - Discharge Medications Prescriptions: levetiracetam 500 mg PO Q12H #30 tab metformin [Glumetza] 500 mg PO HS #30 tab nifedipine 10 mg PO QID #120 cap DS: Summary Hospital Course: Patient was admitted for subdural hematoma. Neurosurgery had been consulted, performed Right anna holes for evacuation of subdural hematoma. Did well postop. Eventually had drain removed. No residual neurological symptoms present. Cooperating and doing well with rehab therapists. Patient has met maximal benefit from hospitalization and is medically clear for discharge. Will benefit from therapy post discharge. Patient is to avoid all NSAIDs and blood thinners. To Be on Keppra for 2 weeks. - Time Spent with Patient Total time spent providing and/or coordinating discharge services: Less than 30 minutes - Quality: VTE Deep Vein Thrombosis/Pulmonary Embolism Present on Admission: No Exam Vital signs: Vital Signs 07/17/18 12:00 07/17/18 16:00 07/17/18 20:00 Temperature 97.8 F 98.4 F 98.0 F Pulse Rate 106 H 74 70 Respiratory Rate 14 18 19 Blood Pressure 193/71 H 129/79 164/71 H Pulse Oximetry 97 100 07/18/18 00:00 07/18/18 04:00 Temperature 98.1 F 98.3 F Pulse Rate 75 66 Respiratory Rate 14 15 Blood Pressure 144/67 H 149/67 H Pulse Oximetry 99 95 Intake & Output 07/17/18 07/18/18 07/18/18 18:59 06:59 18:59 Intake Total 840 / 840 710 / 710 Output Total 1600 / 1600 Balance -760 / -760 710 / 710 Weight 46.2 kg Intake: IV 210 / 210 Keppra Inj 500 MG In NS Inj 100 210 / 210 ML @ 400 mls/hr IV.SIG Q12H [facility] Rx#:[id number] Oral 840 / 840 500 / 500 Output: Urine 1600 / 1600 Other: # Voids 2 # Incontinent Voids 3 Date of Last Bowel Movement 07/16/18 07/18/18 # Bowel Movements 1 Narrative: no facial droop; no slurred speech cranial al in place AA, NAD Results Procedures completed during hospitalization: Right anna holes for evacuation of subdural hematoma Labs on day of discharge: Labs from last 24 hours 07/18/18 07/17/18 07/17/18 06:22 21:29 17:56 POC Glucose 141 H 223 H 186 H 07/17/18 13:37 POC Glucose 315 H - Impressions ITS Impressions Head CT 07/15/18 04:00 CONCLUSION: 1. Decrease in size of right subdural hematoma with less mass effect or midline shift as above. No new hemorrhage. Right-sided drain is within the scalp soft tissues. Tyrone hole is present with pneumocephalus from recent surgery. . Discharge Plan - Discharge Disposition Patient Disposition: /Home Health Service - Discharge Condition Condition: Stable - Discharge Order Discharge Orders: Discharge Order (Routine); Ordered 07/20/18 Ordered By: Stanley Meehan - Physicians Team Primary Care Provider: UNKNOWN, Attending Provider: Whit Martinez Other Providers: Harlan Crump MD ; [employer] ; [facility] ; Drew Espinoza MD - Rxs /Orders / Referrals /Forms Prescriptions: New levetiracetam 500 mg Tablet 500 mg PO Q12H Qty: 30 RF: 0 metformin [Glumetza] 500 mg Tablet,Er Lm.Retention 24 Hr 500 mg PO HS Qty: 30 RF: 0 nifedipine 10 mg Capsule 10 mg PO QID Qty: 120 RF: 0 Continue atorvastatin 40 mg Tablet 40 mg PO DAILY cyanocobalamin-cobamamide [B12] 5,000-100 mcg Lozenge 1 tab Sublingual DAILY donepezil 10 mg Tablet 10 mg PO DAILY folic acid 1 mg Tablet 1 mg PO DAILY loratadine 10 mg Tablet 10 mg PO DAILY losartan 100 mg Tablet 100 mg PO DAILY metoprolol succinate 50 mg Tablet Extended Release 24 Hr 50 mg PO DAILY Referrals: UNKNOWN, [Primary Care Provider] - See Instructions (Follow up outpatient with Neurosurgery. ) - Discharge Instructions Patient Printed Instructions: Metformin (By mouth), Levetiracetam (By mouth), Coronary Artery Disease (GEN), Subdural Hematoma (GEN) - Post Discharge Care Plan Care Plan Goals: Your Health Problems: Goals to Promote Your Health: * To prevent worsening of your condition * To maintain your health at the optimal level Directions to Meet Your Goals: * Take your medications as prescribed * Follow your dietary instruction * Follow activity as directed * Keep your appointments as scheduled * Take your immunizations and boosters as scheduled * If your symptoms worsen call your PCP * If no PCP go to Urgent Care or Emergency Room Smoking is dangerous to your health. Avoid second hand smoke. You may reach the 24-hour crisis hotline for domestic abuse at .
[2018-07-18] MEDS: Senna/Docusate Sodium 8.6/50 MG Tablet PO SCH ×2 (09:38→21:41)
[2018-07-18] MEDS: Folic Acid 1 MG Tablet PO SCH (09:38)
[2018-07-18] MEDS: NIFEdipine 10 MG Capsule PO SCH ×4 (09:38→21:40)
[2018-07-18] MEDS: Pantoprazole Inj 40 MG Vial IV.PUSH SCH (09:39)
--- NOTE | 2018-07-18 12:53 | P.PNNS ---
Subjective Interval history: Pt awake and alert. Denies headaches, nausea or vomiting. Wants to go home. Pt reportedly walking too far for rehab. Physical Exam Vital signs: Vital Signs 07/17/18 16:00 07/17/18 20:00 07/18/18 00:00 Temperature 98.4 F 98.0 F 98.1 F Pulse Rate 74 70 75 Respiratory Rate 18 19 14 Blood Pressure 129/79 164/71 H 144/67 H Pulse Oximetry 97 100 99 07/18/18 04:00 07/18/18 08:00 07/18/18 12:00 Temperature 98.3 F 97.8 F 98.4 F Pulse Rate 66 77 74 Respiratory Rate 15 16 20 Blood Pressure 149/67 H 146/66 H 172/78 H Pulse Oximetry 95 95 Intake & Output 07/17/18 07/18/18 07/18/18 18:59 06:59 18:59 Intake Total 840 / 840 710 / 710 Output Total 1600 / 1600 Balance -760 / -760 710 / 710 Weight 46.2 kg Intake: IV 210 / 210 Keppra Inj 500 MG In NS Inj 100 210 / 210 ML @ 400 mls/hr IV.SIG Q12H [facility] Rx#:[id number] Oral 840 / 840 500 / 500 Output: Urine 1600 / 1600 Other: # Voids 2 # Incontinent Voids 3 Date of Last Bowel Movement 07/16/18 07/18/18 # Bowel Movements 1 - Constitutional no acute distress, average body habitus, cooperative - Routine HEENT Exam Head: Absent: normocephalic (Right burrhole incision clean and dry.) Eye: Present: PERRL (Pupils 2mm bilterally reactive bilaterally.). Absent: conjunctival icterus ENT: Present: oropharynx clear - Routine Neck Exam Present: trachea midline - Routine Respiratory Exam Present: CTA bilaterally. Absent: respiratory distress, rhonchi, wheezes - Routine Cardiovascular Exam Present: RRR, S1, S2. Absent: murmur - Routine Abdominal Exam Present: soft, normoactive bowel sounds. Absent: distended, firm - Routine Skin Exam Absent: cyanosis, erythema Comments: Incision clean and dry without signs of infection. - Routine Neurological Exam Present: alert, oriented X3, moving all extremities, normal speech. Absent: motor deficit, altered mental status - Detailed Neurological Exam: Coma Scale Eye Opening: Spontaneous Verbal Response: Oriented Motor Response: Obey commands Alfred Coma Scale Total: 15 - Routine Psychiatric Exam Present: normal affect, cooperative. Absent: anxious, agitated Assessment and Plan - Assessment (1) HTN (hypertension) Code(s): I10 - Essential (primary) hypertension Status: Acute (2) Subdural hematoma, chronic Code(s): I62.03 - Nontraumatic chronic subdural hemorrhage Status: Acute (3) Surgical history unknown Code(s): Z78.9 - Other specified health status Status: Acute - Plan A/P: 83 s/p Rt anna holes for evacuation of subdural hematoma (07/14) -CT head reviewed: reduction in subdural size and midline shift -EVERARDO with reduced output overnight (30cc)-- removed 07/16 -keppra for 2 weeks -Ok to be OOB and to work with PT. No HOB or activity restriction at this point. -regular diet - D/C planning. Pt states she has family at home that will monitor her. She reportedly will not qualify for rehab given the distance she is ambulating. Pt seen in conjunction with Dr. Espinoza and note written on his behalf.
[2018-07-19] MEDS: Insulin NovoLOG Aspart Correctional Sugar Inj SQ SCH ×6 (02:12→21:35)
[2018-07-19] MEDS: Senna/Docusate Sodium 8.6/50 MG Tablet PO SCH ×2 (10:58→21:21)
[2018-07-19] MEDS: Folic Acid 1 MG Tablet PO SCH (10:59)
[2018-07-19] MEDS: Pantoprazole Inj 40 MG Vial IV.PUSH SCH (10:59)
[2018-07-19] MEDS: NIFEdipine 10 MG Capsule PO SCH ×4 (10:59→21:21)
--- NOTE | 2018-07-19 16:08 | P.PNIM ---
Subjective Interval history: Discharge appeal to [employer] by family. Patient reports she is feeling weak but otherwise doing okay. No new neurological symptoms. Physical Exam Vital signs: Vital Signs 07/18/18 20:00 07/19/18 00:00 07/19/18 04:00 Temperature 98.2 F 98.5 F 97.9 F Pulse Rate 73 71 69 Respiratory Rate 16 16 16 Blood Pressure 130/58 L 109/59 L 112/63 Pulse Oximetry 97 95 97 07/19/18 08:00 07/19/18 12:00 Temperature 98.4 F 97.7 F Pulse Rate 72 81 Respiratory Rate 16 18 Blood Pressure 121/56 L 141/65 H Pulse Oximetry 100 97 Intake & Output 07/18/18 07/19/18 07/19/18 18:59 06:59 18:59 Intake Total 345 / 345 105 / 105 Balance 345 / 345 105 / 105 Weight 43.9 kg Intake: IV 105 / 105 105 / 105 Keppra Inj 500 MG In NS Inj 100 105 / 105 105 / 105 ML @ 400 mls/hr IV.SIG Q12H APOORVA Rx#:[id number] Oral 240 / 240 Other: # Voids 1 Date of Last Bowel Movement 07/18/18 07/18/18 # Bowel Movements 0 Narrative: GENERAL: Elderly female in no acute distress. CARDIOVASCULAR: Normal rate and regular rhythm without murmurs, gallops, or rubs. RESPIRATORY: Good respiratory efforts. Breath sounds equal and clear to auscultation bilaterally. GASTROINTESTINAL: Abdomen soft, non-tender, non-distended. Normal active bowel sounds MUSCULOSKELETAL: Extremities without cyanosis, or edema. NEURO: Alert & Oriented x4 to person, place, time, situation. Moves all ext x4 PSYCH: Appropriate mood and affect. Results - Labs CBC & Chem 7: 07/15/18 04:18 07/15/18 04:18 Laboratory Results - last 24 hr 07/18/18 07/18/18 07/19/18 17:17 21:12 02:10 POC Glucose 200 H 118 H 137 H 07/19/18 07/19/18 07/19/18 06:02 10:57 13:41 POC Glucose 106 393 H 275 H Assessment and Plan - Assessment (1) Subdural hematoma, chronic Code(s): I62.03 - Nontraumatic chronic subdural hemorrhage Status: Acute - Plan 83-year-old female was admitted with subacute subdural hematoma with midline shift. Status post evacuation with EVERARDO drain placement, now status post EVERARDO drain removal. Doing well clinically. Subacute subdural hematoma with midline shift Dementia Keppra Continue Aricept Hypertension Hyperlipidemia home BP meds for now Diabetes mellitus New diagnosis, A1c is 8.2, continue LDSS, discharge w/ low dose metformin SCDs for DVT prophylaxis. Pharmacology DVT prophylaxis is currently contraindicated due to subacute subdural hematoma. Protonix for stress ulcer prophylaxis. Denied [facility] facility by insurance. Family appealed to insurance company. Case management following. Discharge planning pending outcome of the appeal.
[2018-07-20] MEDS: Insulin NovoLOG Aspart Correctional Sugar Inj SQ SCH ×4 (03:07→14:47)
[2018-07-20 05:30] VITALS: O2SAT 99
[2018-07-20] MEDS: Senna/Docusate Sodium 8.6/50 MG Tablet PO SCH (09:09)
[2018-07-20] MEDS: Folic Acid 1 MG Tablet PO SCH (09:14)
[2018-07-20] MEDS: Pantoprazole Inj 40 MG Vial IV.PUSH SCH (09:14)
[2018-07-20] MEDS: NIFEdipine 10 MG Capsule PO SCH ×2 (09:14→13:01)
--- NOTE | 2018-07-20 12:13 | P.PNNS ---
Subjective Interval history: Doing well this AM Physical Exam Vital signs: Vital Signs 07/19/18 16:00 07/19/18 20:00 07/20/18 00:00 Temperature 98.8 F 97.7 F 98.6 F Pulse Rate 77 75 71 Respiratory Rate 16 18 Blood Pressure 101/51 L 152/60 H 113/69 Pulse Oximetry 96 98 96 07/20/18 04:00 07/20/18 08:00 Temperature 98.1 F 98.1 F Pulse Rate 66 78 Respiratory Rate 18 16 Blood Pressure 141/63 H 136/59 L Pulse Oximetry 99 99 Intake & Output 07/19/18 07/20/18 07/20/18 18:59 06:59 18:59 Intake Total 105 / 105 690 / 690 Balance 105 / 105 690 / 690 Weight 45.2 kg Intake: IV 105 / 105 210 / 210 Keppra Inj 500 MG In NS Inj 100 105 / 105 210 / 210 ML @ 400 mls/hr IV.SIG Q12H APOORVA Rx#:[id number] Oral 480 / 480 Other: # Voids 2 Date of Last Bowel Movement 07/19/18 07/19/18 Narrative: GENERAL: Elderly female in no acute distress. CARDIOVASCULAR: Normal rate and regular rhythm without murmurs, gallops, or rubs. RESPIRATORY: Good respiratory efforts. Breath sounds equal and clear to auscultation bilaterally. GASTROINTESTINAL: Abdomen soft, non-tender, non-distended. Normal active bowel sounds MUSCULOSKELETAL: Extremities without cyanosis, or edema. NEURO: Alert & Oriented x4 to person, place, time, situation. Moves all ext x4 PSYCH: Appropriate mood and affect. Assessment and Plan - Plan A/P: 83 s/p Rt anna holes for evacuation of subdural hematoma (07/14) -CT head reviewed: reduction in subdural size and midline shift -EVERARDO with reduced output overnight (30cc)-- removed 07/16 -keppra for 2 weeks -Ok to be OOB and to work with PT. No HOB or activity restriction at this point. -regular diet - D/C planning. Pt states she has family at home that will monitor her. She reportedly will not qualify for rehab given the distance she is ambulating.
[2018-07-20 12:49] VITALS: BP 125/60; PULSE 72; RESP 14; TEMP 97.1
--- NOTE | 2018-07-20 13:28 | P.PNIM ---
Subjective Interval history: Patient reports she is feeling better, feeling stronger. Physical Exam Vital signs: Vital Signs 07/19/18 16:00 07/19/18 20:00 07/20/18 00:00 Temperature 98.8 F 97.7 F 98.6 F Pulse Rate 77 75 71 Respiratory Rate 16 18 18 Blood Pressure 101/51 L 152/60 H 113/69 Pulse Oximetry 96 98 96 07/20/18 04:00 07/20/18 08:00 07/20/18 12:00 Temperature 98.1 F 98.1 F 97.1 F L Pulse Rate 66 78 72 Respiratory Rate 18 16 14 Blood Pressure 141/63 H 136/59 L 125/60 Pulse Oximetry 99 99 99 Intake & Output 07/19/18 07/20/18 07/20/18 18:59 06:59 18:59 Intake Total 105 / 105 690 / 690 Balance 105 / 105 690 / 690 Weight 45.2 kg Intake: IV 105 / 105 210 / 210 Keppra Inj 500 MG In NS Inj 100 105 / 105 210 / 210 ML @ 400 mls/hr IV.SIG Q12H APOORVA Rx#:[id number] Oral 480 / 480 Other: # Voids 2 Date of Last Bowel Movement 07/19/18 07/19/18 Narrative: GENERAL: Elderly female in no acute distress. CARDIOVASCULAR: Normal rate and regular rhythm without murmurs, gallops, or rubs. RESPIRATORY: Good respiratory efforts. Breath sounds equal and clear to auscultation bilaterally. GASTROINTESTINAL: Abdomen soft, non-tender, non-distended. Normal active bowel sounds MUSCULOSKELETAL: Extremities without cyanosis, or edema. NEURO: Alert & Oriented x4 to person, place, time, situation. Moves all ext x4 PSYCH: Appropriate mood and affect. Results - Labs CBC & Chem 7: 07/15/18 04:18 07/15/18 04:18 Laboratory Results - last 24 hr 07/19/18 07/19/18 07/19/18 13:41 16:37 21:27 POC Glucose 275 H 85 306 H 07/20/18 07/20/18 07/20/18 03:06 06:25 09:11 POC Glucose 105 141 H 305 H Assessment and Plan - Assessment (1) Subdural hematoma, chronic Code(s): I62.03 - Nontraumatic chronic subdural hemorrhage Status: Acute - Plan 83-year-old female was admitted with subacute subdural hematoma with midline shift. s/p right anna holes for evacuation of subdural hematoma (07/14) -keppra for 2 weeks -Ok to be OOB and to work with PT. No HOB or activity restriction at this point. -Patient is doing well clinically. She can continue rehabilitation efforts outpatient with home physical therapy. Subacute subdural hematoma with midline shift Dementia Keppra Continue Aricept Hypertension Hyperlipidemia Continue home dose antihypertensives. Diabetes mellitus New diagnosis, A1c is 8.2, continue LDSS, discharge w/ low dose metformin Denied [facility] facility by insurance. Family appealed to insurance company. The patient progressed and is now stronger to continue rehabilitation efforts at home. She is discharged with home health and physical therapy. Discharge Planning: Discharge home with home health today. Resume prior discharge orders.
== END 2018-07-20 15:04 | disposition home health service (06) ==
LOC: NEDDLT 20:47 → N03 07-14 02:11 → N05 07-18 15:00
PROVIDERS: ADMIT Family Medicine; ATTEND Family Medicine